=== PATIENT | female | born 1990 | race Caucasian/White ===

== ENCOUNTER 2022-05-22 20:00 | Emergency (ER) | payer OTHER, SELFPAY ==
[2022-05-22 21:28] VITALS: BP 136/86; PULSE 89; RESP 18; TEMP 36.9; O2SAT 99; BMI 38.3
[2022-05-22 22:05] VITALS: O2SAT 98
[2022-05-22 22:42] LABS: Appearance Urine Clear (Clear); Bilirubin Urine 1+ (Negative); Blood Urine Negative (Negative); Color Urine Yellow (Yellow); Glucose Urine Negative (Negative); Ketones Urine Negative (Negative); Leukocyte Esterase Urine Negative (Negative); Nitrite Urine Negative (Negative); Protein Urine Trace (Negative); Specific Gravity Urine >= 1.030 (1.000-1.030); Urobilinogen Urine 0.2 (0.2-1.0)
[2022-05-22 22:47] LABS: Bacteria Urine Few; RBC Urine 0-2 (0-2); Squamous Epithelial Cell Urine Few (None-Few); WBC Urine 0-2 (0-5)
[2022-05-22] MEDS: 0.9 % SODIUM CHLORIDE 1000 ml 1,000 ML IV ×2 (22:47→23:40)
[2022-05-22] MEDS: LORazepam 2 MG/ML inj 1 MG IVP (23:01)
--- NOTE | 2022-05-22 23:01 | ED_ITS ---
HPI - Nausea/Vomiting/Diarrhea General Chief complaint: Nausea/Vomiting <Sal Garcia MD - Last Filed: 05/22/22 23:37> Stated complaint: Nausea Vomiting Diarrhea <Sal Garcia MD - Last Filed: 05/22/22 23:37> Time Seen by Provider: 05/22/22 21:07 <Sal Garcia MD - Last Filed: 05/22/22 23:37> History of Present Illness HPI Narrative: Pt is a 31 year old woman who presents with a 6 hour history of nausea, vomiting and diarrhea. She has no blood in her vomitus or stool. No fever or chills. Minimal abd pain. No dysuria. She states that she is not as her had a vasectomy. Pain is mild and diffuse. She has had a previous mikhail cystectomy. No travel or sick contacts. No aggrevating or aleviating factors. <Sal Garcia MD - Last Filed: 05/22/22 23:37> Related Data Home medications: Home Medications Medication Instructions Recorded Confirmed albuterol sulfate 90 mcg/actuation 2 inh inhalation Q6H PRN 05/22/22 05/22/22 aerosol inhaler escitalopram oxalate 10 mg tablet 10 mg PO DAILY 05/22/22 05/22/22 loperamide 2 mg capsule (Imodium 2 mg PO Q6H PRN 05/22/22 05/22/22 A-D) montelukast 10 mg tablet 10 mg PO HS 05/22/22 05/22/22 ondansetron 4 mg disintegrating 4 mg PO 05/22/22 05/22/22 tablet Previous Rx's Medication Instructions Recorded buspirone 7.5 mg tablet 7.5 mg PO BID #180 tabs 02/07/22 sertraline 50 mg tablet 50 mg PO DAILY #90 tabs 02/07/22 <Sal Garcia MD - Last Filed: 05/22/22 23:37> Allergies/Adverse reactions: Allergies Allergy/AdvReac Type Severity Reaction Status Date / Time amoxicillin Allergy Verified 05/22/22 21:30 metformin Allergy Hives Verified 05/22/22 21:30 <Sal Garcia MD - Last Filed: 05/22/22 23:37> Review of Systems Status of ROS: Reports: 10 or more systems reviewed and unremarkable except as noted in History and below <Sal Garcia MD - Last Filed: 05/22/22 23:37> [facility] Medical History: Medical History (Updated 05/22/22 @ 23:37 by Sal Garcia MD) Anxiety Asthma <Sal Garcia MD - Last Filed: 05/22/22 23:37> Social History: Social History Smoking Status: Former smoker Do you use any of these nicotine containing products: None Second hand tobacco smoke exposure: No How often do you have a drink containing alcohol: never AUDIT-C Alcohol total score: 0 Non-prescribed substance use: denies use <Sal Garcia MD - Last Filed: 05/22/22 23:37> Exam Narrative: Exam Narrative: EXAM GENERAL: Patient appears comfortable and well. EYES: No scleral icterus. LYMPH: No supraclavicular or cervical lymphadenopathy. SKIN: Visible skin seen during exam normal or with benign process only. EXT: No dependent lower extremity pedal edema. HEART: Regular rate and rhythm with no murmurs, rubs, or gallops. LUNGS: Clear to auscultation bilaterally with no crackles or wheezes. ABD: Soft, non tender, non distended. PSYCH: Good eye contact, speech is not pressured. <Sal Garcia MD - Last Filed: 05/22/22 23:37> Const: Vital Signs, click to edit/add: Vital Signs - 24 hr 05/22/22 21:28 05/22/22 22:05 05/22/22 23:23 Temperature 98.5 F Pulse Rate [Right Pulse Oximeter] 89 83 Respiratory Rate 18 20 Blood Pressure [Ri ght Upper Arm] 136/86 131/89 Pulse Oximetry 99 98 98 Oxygen Delivery Me thod Room Air Room Air <Sal Garcia MD - Last Filed: 05/22/22 23:37> Vital Signs, click to edit/add: Vital Signs - 24 hr 05/22/22 21:28 05/22/22 22:05 05/22/22 23:23 Temperature 98.5 F Pulse Rate [Right Pulse Oximeter] 89 83 Respiratory Rate 18 20 Blood Pressure [Ri ght Upper Arm] 136/86 131/89 Pulse Oximetry 99 98 98 Oxygen Delivery Me thod Room Air Room Air <Consuelo Pdeersen MD - Last Filed: 05/23/22 01:15> Course Course Hospital Course: Pt seen and examined. CBC, CMP, Amylase, normal saline, zofran and ativan ordered <Sal Garcia MD - Last Filed: 05/22/22 23:37> Reevaluation(s) Reevaluation #1: cbc, cmp, amylase, urine negative upon my review. Symptoms persist. Will give 2nd liter of ns with 12.5 mg phenergan. <Sal Garcia MD - Last Filed: 05/22/22 23:37> Time: 23:36 <Sal Garcia MD - Last Filed: 05/22/22 23:37> Vital Signs Vital signs: Initial Vital Signs Temperature 98.5 F 05/22/22 21:28 Temperature Source Temporal Artery Scan 05/22/22 21:28 Pulse Rate 89 05/22/22 21:28 Respiratory Rate 18 05/22/22 21:28 Blood Pressure 136/86 05/22/22 21:28 Blood Pressure Mean 102 05/22/22 21:28 Blood Pressure Position Sitting 05/22/22 21:28 Pulse Oximetry 99 05/22/22 21:28 Oxygen Delivery Method 05/22/22 21:28 Vital Signs Temperature 98.5 F 05/22/22 21:28 Pulse Rate 89 05/22/22 21:28 Respiratory Rate 18 05/22/22 21:28 Blood Pressure 136/86 05/22/22 21:28 Pulse Oximetry 99 05/22/22 21:28 Oxygen Delivery Method 05/22/22 21:28 Temperature 98.5 F 05/22/22 21:28 Pulse Rate 83 05/22/22 23:23 Respiratory Rate 20 05/22/22 23:23 Blood Pressure 131/89 05/22/22 23:23 Pulse Oximetry 98 05/22/22 23:23 Oxygen Delivery Method 05/22/22 23:23 <Sal Garcia MD - Last Filed: 05/22/22 23:37> Initial Vital Signs Temperature 98.5 F 05/22/22 21:28 Temperature Source Temporal Artery Scan 05/22/22 21:28 Pulse Rate 89 05/22/22 21:28 Respiratory Rate 18 05/22/22 21:28 Blood Pressure 136/86 05/22/22 21:28 Blood Pressure Mean 102 05/22/22 21:28 Blood Pressure Position Sitting 05/22/22 21:28 Pulse Oximetry 99 05/22/22 21:28 Oxygen Delivery Method 05/22/22 21:28 Vital Signs Temperature 98.5 F 05/22/22 21:28 Pulse Rate 89 05/22/22 21:28 Respiratory Rate 18 05/22/22 21:28 Blood Pressure 136/86 05/22/22 21:28 Pulse Oximetry 99 05/22/22 21:28 Oxygen Delivery Method 05/22/22 21:28 Temperature 98.5 F 05/22/22 21:28 Pulse Rate 83 05/22/22 23:23 Respiratory Rate 20 05/22/22 23:23 Blood Pressure 131/89 05/22/22 23:23 Pulse Oximetry 98 05/22/22 23:23 Oxygen Delivery Method 05/22/22 23:23 <Consuelo Pedersen MD - Last Filed: 05/23/22 01:15> MDM - Nausea/Vomiting/Diarrhea MDM Narrative Medical decision making narrative: Reassessment all 1:15 a.m.: Patient is sleeping comfortably. Completed fluids and additional medications with improvement in symptoms. Discharge plan discussed. Dr. Pedersen <Consuelo Pedersen MD - Last Filed: 05/23/22 01:15> Lab Data Labs: Lab Results 05/22/22 05/22/22 05/22/22 Range/Units 22:20 22:35 22:35 WBC 11.51 H (4.50-11.00) K/uL RBC 5.26 H (4.00-5.20) m/uL Hgb 14.6 (12.0-16.0) gm/dL Hct 44.8 (33.0-51.0) % MCV 85 (80-100) fL MCH 28 (26-34) pg MCHC 33 (32-36) gm/dL RDW Coeff of Coy 13.1 (11.5-15.5) % Plt Count 380 (140-440) K/uL Neut % (Auto) 79.4 H (42.0-72.0) % Lymph % (Auto) 14.1 L (20-44) % Garrard % (Auto) 3.6 (0.0-11.0) % Eos % (Auto) 2.3 (0.0-7.0) % Baso % (Auto) 0.1 (0.0-3.0) % Neut # (Auto) 9.10 H (1.7-7.0) K/uL Lymph # (Auto) 1.60 (0.90-2.90) K/uL Garrard # (Auto) 0.40 (0.00-0.90) K/UL Eos # (Auto) 0.30 (0.00-0.50) K/uL Baso # (Auto) 0.00 (0.00-0.30) K/uL Abs Immat Gran (auto) 0.10 (0.00-0.30) K/uL Imm/Tot Granulo (auto) 0.5 % Sodium 137 (135-149) mmol/L Potassium 3.8 (3.6-5.1) mmol/L Chloride 102 (96-114) mmol/L Carbon Dioxide 23 (20-32) mmol/L BUN 13 (5-24) mg/dL Creatinine 0.7 (0.5-1.5) mg/dL Estimated Creat Clear 116.39 Estimated GFR 118 ml/min Glucose 117 H (60-115) mg/dL Calcium 9.4 (8.4-10.6) mg/dL Total Bilirubin 0.5 (0.1-1.5) mg/dL AST 31 (12-35) U/L ALT 34 (4-35) U/L Alkaline Phosphatase 111 (40-150) U/L Total Protein 8.1 (6.0-8.3) g/dL Albumin 4.8 (3.3-5.0) g/dL Amylase 71 (18-89) U/L Urine Color Yellow (Yellow) Urine Appearance Clear (Clear) Urine pH 6.0 (5.0-8.5) Ur Specific Mcfarland >= 1.030 (1.000-1.030) Urine Protein Trace A (Negative) Urine Glucose (UA) Negative (Negative) Urine Ketones Negative (Negative) Urine Blood Negative (Negative) Urine Nitrite Negative (Negative) Urine Bilirubin 1+ A (Negative) Urine Urobilinogen 0.2 (0.2-1.0) Ur Leukocyte Esterase Negative (Negative) Urine RBC 0-2 (0-2) Urine WBC 0-2 (0-5) Ur Squamous Epith Cells Few (None-Few) Urine Bacteria Few A (None) <Sal Garcia MD - Last Filed: 05/22/22 23:37> Lab Results 05/22/22 05/22/22 05/22/22 Range/Units 22:20 22:35 22:35 WBC 11.51 H (4.50-11.00) K/uL RBC 5.26 H (4.00-5.20) m/uL Hgb 14.6 (12.0-16.0) gm/dL Hct 44.8 (33.0-51.0) % MCV 85 (80-100) fL MCH 28 (26-34) pg MCHC 33 (32-36) gm/dL RDW Coeff of Coy 13.1 (11.5-15.5) % Plt Count 380 (140-440) K/uL Neut % (Auto) 79.4 H (42.0-72.0) % Lymph % (Auto) 14.1 L (20-44) % Garrard % (Auto) 3.6 (0.0-11.0) % Eos % (Auto) 2.3 (0.0-7.0) % Baso % (Auto) 0.1 (0.0-3.0) % Neut # (Auto) 9.10 H (1.7-7.0) K/uL Lymph # (Auto) 1.60 (0.90-2.90) K/uL Garrard # (Auto) 0.40 (0.00-0.90) K/UL Eos # (Auto) 0.30 (0.00-0.50) K/uL Baso # (Auto) 0.00 (0.00-0.30) K/uL Abs Immat Gran (auto) 0.10 (0.00-0.30) K/uL Imm/Tot Granulo (auto) 0.5 % Sodium 137 (135-149) mmol/L Potassium 3.8 (3.6-5.1) mmol/L Chloride 102 (96-114) mmol/L Carbon Dioxide 23 (20-32) mmol/L BUN 13 (5-24) mg/dL Creatinine 0.7 (0.5-1.5) mg/dL Estimated Creat Clear 116.39 Estimated GFR 118 ml/min Glucose 117 H (60-115) mg/dL Calcium 9.4 (8.4-10.6) mg/dL Total Bilirubin 0.5 (0.1-1.5) mg/dL AST 31 (12-35) U/L ALT 34 (4-35) U/L Alkaline Phosphatase 111 (40-150) U/L Total Protein 8.1 (6.0-8.3) g/dL Albumin 4.8 (3.3-5.0) g/dL Amylase 71 (18-89) U/L Urine Color Yellow (Yellow) Urine Appearance Clear (Clear) Urine pH 6.0 (5.0-8.5) Ur Specific Mcfarland >= 1.030 (1.000-1.030) Urine Protein Trace A (Negative) Urine Glucose (UA) Negative (Negative) Urine Ketones Negative (Negative) Urine Blood Negative (Negative) Urine Nitrite Negative (Negative) Urine Bilirubin 1+ A (Negative) Urine Urobilinogen 0.2 (0.2-1.0) Ur Leukocyte Esterase Negative (Negative) Urine RBC 0-2 (0-2) Urine WBC 0-2 (0-5) Ur Squamous Epith Cells Few (None-Few) Urine Bacteria Few A (None) <Consuelo Pedersen MD - Last Filed: 05/23/22 01:15> Discharge Plan Discharge Clinical Impression: Gastroenteritis <Sal Garcia MD - Last Filed: 05/22/22 23:37> Patient Disposition: Home, Self-Care <Sal Garcia MD - Last Filed: 05/22/22 23:37> Condition: Stable <Sal Garcia MD - Last Filed: 05/22/22 23:37> Instructions: Gastroenteritis (ED) <Sal Garcia MD - Last Filed: 05/22/22 23:37> Additional Instructions: Push fluids, soft bland diet for the next 24 hours. It is still common to have diarrhea and retching. We have given you fluids to help prevent dehydration. Symptoms do tend to last 3-4 days. If you are having severe symptoms, come back to the emergency department. It is okay to use Tums, [id number] Pepcid or omeprazole to help with irritation as well. You may continue using the Zofran and Imodium if needed for diarrhea. Check in with her primary care provider if you are not showing signs of improvement in 48 hours. <Sal Garcia MD - Last Filed: 05/22/22 23:37> Activity Level: No Restrictions <Sal Garcia MD - Last Filed: 05/22/22 23:37> No Restrictions <Consuelo Pedersen MD - Last Filed: 05/23/22 01:15> Discharge Diet: Regular <Sal Garcia MD - Last Filed: 05/22/22 23:37> Regular <Consuelo Pedersen MD - Last Filed: 05/23/22 01:15> Prescriptions: No Action escitalopram oxalate 10 mg tablet 10 mg PO DAILY ondansetron 4 mg tablet,disintegrating 4 mg PO loperamide [Imodium A-D] 2 mg capsule 2 mg PO Q6H PRN montelukast 10 mg tablet 10 mg PO HS Label Comments: TAKE 1 TABLET BY MOUTH EVERYDAY AT BEDTIME albuterol sulfate 90 mcg/actuation HFA aerosol inhaler 2 inh INHALATION Q6H PRN Label Comments: INHALE 1-2 PUFFS EVERY 4 HOURS NEEDED FOR WHEEZING sertraline 50 mg tablet 50 mg PO DAILY Qty: 90 0RF buspirone 7.5 mg tablet 7.5 mg PO BID Qty: 180 0RF Rx Instructions: Due for physical. <Sal Garcia MD - Last Filed: 05/22/22 23:37> Follow Up/Referrals: Natanael Wilcox MD [Primary Care Provider] - <Sal Garcia MD - Last Filed: 05/22/22 23:37> Stand Alone Forms: [facility] <Sal Garcia MD - Last Filed: 05/22/22 23:37>
[2022-05-22 23:10] LABS: Albumin* 4.8 g/dL (3.3-5.0); Basophils Percent Auto 0.1 % (0.0-3.0); Chloride* 102 mmol/L (96-114); Eosinophils Percent Auto 2.3 % (0.0-7.0); Hematocrit 44.8 % (33.0-51.0); Hemoglobin* 14.6 gm/dL (12.0-16.0); Immature Granulocytes Pct Auto 0.5 %; Lymphocytes Percent Auto 14.1 % (20-44); Mean Corpuscular HGB Conc 33 gm/dL (32-36); Mean Corpuscular Hemoglobin 28 pg (26-34); Mean Corpuscular Volume 85 fL (80-100); Monocytes Percent Auto 3.6 % (0.0-11.0); Neutrophils Percent Auto 79.4 % (42.0-72.0); Platelet Count* 380 K/uL (140-440); Potassium* 3.8 mmol/L (3.6-5.1); RDW Coefficient of Variation % 13.1 % (11.5-15.5); Red Blood Count 5.26 m/uL (4.00-5.20); Sodium* 137 mmol/L (135-149); White Blood Count* 11.51 K/uL (4.50-11.00)
[2022-05-22 23:12] LABS: Amylase* 71 U/L (18-89); Creatinine* 0.7 mg/dL (0.5-1.5); Est. Creatinine Clearance* 116.39; Estimated Glomerular Filt Rate 118 ml/min
[2022-05-22 23:13] LABS: Alanine Aminotransferase* 34 U/L (4-35); Alkaline Phosphatase* 111 U/L (40-150); Aspartate Amino Transferase* 31 U/L (12-35); Bilirubin Total* 0.5 mg/dL (0.1-1.5); Blood Urea Nitrogen* 13 mg/dL (5-24); Calcium* 9.4 mg/dL (8.4-10.6); Carbon Dioxide* 23 mmol/L (20-32); Glucose* 117 mg/dL (60-115); Total Protein* 8.1 g/dL (6.0-8.3)
[2022-05-22 23:21] LABS: Slide Review Reflex No
[2022-05-22 23:23] VITALS: BP 131/89; PULSE 83; RESP 20; O2SAT 98
[2022-05-22] MEDS: PROMETHAZINE 25 MG/ML INJ 12.5 MG IVP (23:57)
[2022-05-23 01:23] VITALS: BP 125/78; PULSE 79; RESP 20; TEMP 36.6; O2SAT 98
[2022-05-23 01:27] VITALS: BP 125/78; PULSE 79; RESP 20; TEMP 36.6
== END 2022-05-23 01:28 | disposition home or self-care (01) ==
PROVIDERS: Emergency Provider Internal Medicine
DX: K52.9 Noninfective gastroenteritis and colitis, unspecified (principal)
CPT/HCPCS: 36415; 80053; 81003; 81015; 82150; 85025; 87086; 94761; 96374; 96375; 99283; 99284; J2060; J2550; J7030